=== PATIENT | female | born 1990 | race African-American/Black ===

== ENCOUNTER → 2020-07-11 | Emergency (ER) | payer OTHER ==
[~2020-07-11] VITALS: Ht 162.6 cm; Wt 81.6 kg
[2020-07-11 18:33] LABS: Basophils # (auto) 0 10 ^3/uL (0-0.2); Eosinophils # (auto) 0.1 10 ^3/uL (0-0.8); Hemoglobin 11.7 g/dL (12.2-16.2); Lymphocytes # (auto) 1.3 10 ^3/uL (0.4-5.4); Mean Corpuscular Hemoglobin 26.6 pg (28.0-32.0); Mean Corpuscular Hgb Conc. 31.7 g/dL (32.0-36.0); Monocytes # (auto) 0.3 10 ^3/uL (0-1.3); Nucleated Red Blood Cells % 0.1 %
[2020-07-11 18:35] LABS: Basophils % (auto) 0.9 % (0.0-2.0); Eosinophils % (auto) 2.7 % (0.0-7.0); Hematocrit 36.9 % (36.0-46.0); Lymphocytes % (auto) 34.2 % (10.0-50.0); Mean Corpuscular Volume 83.8 fL (80.0-100.0); Monocytes % (auto) 9.5 % (0.0-12.0); Neutrophils # (auto) 1.9 10 ^3/uL (1.6-8.6); Neutrophils % (auto) 52.7 % (37.0-80.0); Platelet Count (auto) 265 10^3/uL (140-450); Red Cell Distribution Width 15.4 % (11.8-14.3); White Blood Cell 3.7 10^3/uL (4.4-10.8)
[2020-07-11 18:50] LABS: INR 0.96 (0.9-1.15); Partial Thromboplastin Time 25.4 sec (23.0-31.2)
[2020-07-11 18:53] LABS: Albumin 3.7 g/dL (3.4-5.0); Anion Gap 4 (5-15); BUN/Creatinine Ratio 13.5; Blood Urea Nitrogen 12 mg/dL (7-18); Calcium 8.5 mg/dL (8.5-10.1); Carbon Dioxide 29 mmol/L (21-32); Chloride 107 mmol/L (98-107); GFR African American 96 mL/min; GFR Non-African American 80 mL/min; Glucose 102 mg/dL (74-106); Magnesium 1.9 mg/dL (1.6-2.6); Potassium 3.7 mmol/L (3.5-5.1); Sodium 140 mmol/L (136-145)
[2020-07-11 19:00] LABS: Alanine Aminotransferase 18 U/L (13-56); Alkaline Phosphatase 69 U/L (45-117); Aspartate Aminotransferase 10 U/L (15-37); Bilirubin, Total 0.2 mg/dL (0.2-1.0)
[2020-07-11 19:13] LABS: Urine Bacteria MANY /hpf (None Seen); Urine Blood Negative /uL (Negative); Urine Mucus FEW (None Seen); Urine Specific Gravity 1.035 (1.001-1.035); Urine WBC 12 /hpf (0 - 5)
[2020-07-11 19:54] VITALS: BP 116/61
== END | disposition home or self-care (01) ==
LOC: ER 16:37
DX: R07.89 Other chest pain (principal); N39.0 Urinary tract infection, site not specified
CPT/HCPCS: 36415; 71045; 80053; 81001; 83735; 83880; 84443; 84484; 85025; 85379; 85610; 85730